=== PATIENT | male | born 1970 | race Caucasian/White ===

== ENCOUNTER 2024-04-17 06:27 | Day surgery (SDC) | payer OTHER, SELFPAY ==
[2024-04-17 07:29] VITALS: BMI 26.4
[2024-04-17 07:30] VITALS: BMI 26.4
[2024-04-17] MEDS: TYLENOL 1000 MG PO (07:42)
[2024-04-17 07:54] VITALS: BP 138/91
[2024-04-17 10:00] VITALS: BP 138/90
== END 2024-04-17 10:21 | disposition home or self-care (01) ==
LOC: SDS 06:27
PROVIDERS: ATTENDING PHYSICIAN Surgery
DX: L72.9 Follicular cyst of the skin and subcutaneous tissue, unspecified (principal)
CPT/HCPCS: 11423

== ENCOUNTER 2024-07-05 09:02 | Emergency (ER) | payer OTHER, SELFPAY ==
[2024-07-05 09:04] VITALS: BP 159/84
--- NOTE | 2024-07-05 10:10 | ED.GENMED ---
History of Present Illness
General
Chief Complaint: Cold/Flu/URI Symptoms
Source: patient
Exam Limitations: none
Time Seen by Provider: 07/05/24 09:47
Nursing documentation reviewed up to this point in time: agreed with
History of Present Illness
History of Present Illness:
54-year-old male with history of HTN, HLD, smoker who states he smoked for the past 40 years and stopped last week.
He is here today for persistent stent chest congestion. He states symptoms started 7 weeks ago when he was diagnosed with flu B at urgent care and given a Z-Mikey and felt no better. He saw his family doctor waqar 2 weeks ago with sinus congestion,
chest congestion, cough and was put on Augmentin 500 mg twice daily for 10 days after which she had a little relief.
For the past 4 to 5 days the chest congestion is worse, he is coughing up mucus, blowing his nose a lot, feels achy and sore.
Denies f/c/n/v/d/c. 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
Past History
Past History
ED Past Medical History: HTN and Hypercholesterolemia
ED Past Surgical History: Orthopedic
Social History
Tobacco: Smoker
Alcohol: Occasional
Drug: None
Personal: Single
Living: with family
Employment: Employed
Family History
Family History: Other
Review of Systems
Review of Systems
Allergies reviewed?: Yes
All Other Systems: ROS reviewed and negative except as documented in HPI and ROS
Constitutional: Denies fever or chills
EENT: Reports runny nose (Blowing nose a lot); Denies sore throat
Respiratory: Reports cough; Denies hemoptysis or trouble breathing
Cardiac: Denies chest pain
ABD/GI: Denies abdominal pain, nausea, vomiting or diarrhea
: Denies dysuria or difficulty voiding
Musculoskeletal: Reports no symptoms
Skin: Reports no symptoms
Neurological: Reports no symptoms
Phy Exam
Physical Exam
Physical Exam:
GENERAL: No acute distress. A&Ox3.
CONSTITUTIONAL: Afebrile.
EYES: clear, conjunctivae normal
ENMT: moist mucus membranes, Pharynx nl
RESPIRATORY: Regular respirations, nonlabored, intermittent junky cough, lungs with low pitched expiratory rhonchi
CARDIOVASCULAR: Regular rate and rhythm, no murmurs, no rubs.
GI: Soft, nontender, normal BS
MUSCULOSKELETAL: Moves with ease. Well perfused.
SKIN: Warm, dry, pink
PSYCH: Normal mood and affect. Well kept, interactive and appropriate
NEUROLOGIC: Awake, alert and oriented. No focal neurological deficits
Course
Orders/Labs/Results
Orders:
Orders
07/05/24 10:09
Ipratropium/Albuterol Sulfate [Duoneb] 3 ml INH R NOW STA
CR Chest - 2 Views Urgent
Comment:
Reason For Exam: congestion x 7 weeks, no improv w 2 antibiotics
07/05/24 10:26
Complete Blood Count/With Diff Urgent
Comprehensive Metabolic Panel Urgent
Abnormal Lab Results
07/05/24
10:26
Absolute Monos (auto) 0.7 H 10^3/uL
(0.1-0.6)
ALT 78 H U/L
(0-50)
07/05/24 10:26
07/05/24 10:26
Vital Signs
Initial and Last Documented VS:
Initial Vital Signs
Temp Pulse Resp BP Pulse Ox
97.8 F 87 16 159/84 99
07/05/24 09:04 07/05/24 09:04 07/05/24 09:04 07/05/24 09:04 07/05/24 09:04
Last Documented Vital Signs
Temp Pulse Resp BP Pulse Ox
97.8 F 73 16 126/87 99
07/05/24 09:04 07/05/24 11:52 07/05/24 09:04 07/05/24 11:52 07/05/24 09:04
MDM/Problems Addressed
Differential Diagnosis Includes:
seasonal allergies, viral URI, COPD
MDM/Problems Addressed:
54-year-old male with history of HTN, HLD, smoker who states he smoked for the past 40 years and stopped last week.
He is here today for persistent stent chest congestion. He states symptoms started 7 weeks ago when he was diagnosed with flu B at urgent care and given a Z-Mikey and felt no better. He saw his family doctor waqar 2 weeks ago with sinus congestion,
chest congestion, cough and was put on Augmentin 500 mg twice daily for 10 days after which she had a little relief.
For the past 4 to 5 days the chest congestion is worse, he is coughing up mucus, blowing his nose a lot, feels achy and sore.
Denies f/c/n/v/d/c. 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
Afebrile, NAD
11:40 AM:
CBC, CMP unremarkable
Chest x-ray: Radiology report read: NAD
Pt feels much better after Duoneb states lungs feel much clearer, rhonchi much improved on auscultation
This is most likely a mixture of seasonal allergies, possibly a viral URI and possibly COPD
Plan: Prescription sent to his pharmacy for albuterol inhaler, a steroid taper and Flonase for his sinus congestion
*Critical Care Note
Total Time (30-74mins, 75-104mins- exclusive of procedures): Not Applicable
ED Attending Note
-
Portions of this chart may have been created with voice recognition software.� Occasional wrong word or��sound alike� substitutions may have occurred due to the inherent limitations of voice recognition software.
Discharge Plan
Departure
Patient Disposition: Home (Routine Discharge)
Date of Disposition: 07/05/24
Time of Disposition: 11:39
Patient with high blood pressure during this ER visit?: No
Condition: Good
Discharge Problem:
Viral URI with cough, Seasonal allergies
Instructions: Viral Upper Respiratory Infection, Adult (DC), Seasonal Allergies ED
Prescriptions:
New
albuterol sulfate 90 mcg/actuation HFA aerosol inhaler
2 puff inhalation Q6H PRN (Reason: shortness of breath or wheezing) Qty: 6.7 0RF
prednisone 20 mg tablet
40 mg PO DAILY Qty: 10 0RF
fluticasone propionate [Flonase Allergy Relief] 50 mcg/actuation spray,suspension
1 spray intranasal DAILY Qty: 16 0RF
No Action
atorvastatin 40 mg Tablet
40 mg PO DAILY
lisinopril-hydrochlorothiazide 20-12.5 mg Tablet
1 tab PO DAILY
acetaminophen 500 mg Tablet
1,000 mg PO Q6H PRN (Reason: pain)
Centrum Silver Men [id number] mcg Tablet
1 tab PO DAILY
ibuprofen 200 mg tablet
400 - 600 mg PO Q6HPRN PRN (Reason: moderate pain) Qty: 1 0RF
Referrals:
Shar Monge, [Family Provider] - Follow up in 1 week
Activity Restrictions/Additional Instructions:
As we discussed, you may have a combination of a viral upper respiratory infection, seasonal allergies and may be a touch of COPD.
Your chest x-ray is clear, your blood work is normal
I sent a prescription to your pharmacy for an albuterol inhaler, a steroid taper and Flonase nasal spray
Try Claritin or Zyrtec for allergies.
See your doctor next week if not much improved by then
Interventions
Interventions:
*Risk Screen - Suicide Last Done: 07/05/24 09:04
*General Assessment Last Done: 07/05/24 09:04
*Neglect/Abuse Screening Last Done: 07/05/24 09:04
*ED- Fall Risk Assessment Last Done: 07/05/24 10:33
*ED COVID-19 Vaccine History Last Done: 07/05/24 09:04
*Nursing Disposition Last Done: 07/05/24 11:52
ED- Pulmonary Assessment Last Done: 07/05/24 10:33
Discharge Date and Time
Discharge Date/Time: 07/05/24 12:17
Print Language: POLISH
[2024-07-05] MEDS: DUONEB 3 ML INH (10:27)
[2024-07-05 10:33] VITALS: BMI 27.1
[2024-07-05 10:51] LABS: % Basophils 0.9 % (0-2); % Eosinophils 2.8 % (0-6); % Immature Granulocytes 0.4 % (0-0.5); % Lymphocytes 34.1 % (20.5-51.1); % Monocytes 8.7 % (1.7-9.3); % Neutrophils 53.1 % (42.2-75.2); Absolute Basophils 0.1 10^3/uL (0-0.2); Absolute Eosinophils 0.2 10^3/uL (0-0.7); Absolute Lymphocytes 2.6 10^3/uL (1.2-3.4); Absolute Monocytes 0.7 10^3/uL (0.1-0.6); Hematocrit 41.8 % (39.0-52.0); Hemoglobin 14.4 g/dL (13.0-18.0); Mean Corp Hgb Conc. 34.4 g/dL (33.0-37.0); Mean Corpuscular Hgb 29.6 pg (27.0-31.0); Mean Corpuscular Volume 85.8 fL (80.0-94.0); Mean Platelet Volume 9.9 fL (7.4-10.4); Nucleated Red Blood Cells % 0 % (-); Platelet Count 226 10^3/uL (130-400); Red Blood Cell Count 4.87 10^6/uL (4.70-6.10); Red Cell Dist. Width 12.8 % (11.5-14.5); White Blood Cell Count 7.6 10^3/uL (4.8-10.8)
[2024-07-05 10:52] LABS: ALT (SGPT) 78 U/L (0-50); AST (SGOT) 37 U/L (17-59); Albumin 4.7 g/dl (3.5-5.0); Alkaline Phosphatase 70 U/L (38-126); Blood Urea Nitrogen 20 mg/dl (9-20); Carbon Dioxide 28 mmol/L (22-30); Chloride 101 mmol/L (98-107); Estimated Creatinine Clearance 104 ml/min; Glucose 93 mg/dl (70-99); Potassium 4.1 mmol/L (3.5-5.1); Sodium 137 mmol/L (135-145); Total Bilirubin 1.1 mg/dl (0.2-1.3); Total Protein 6.8 g/dl (6.3-8.2); eGFR > 60.00
[2024-07-05 11:52] VITALS: BP 126/87
== END 2024-07-05 12:17 | disposition home or self-care (01) ==
LOC: EMR 09:02
PROVIDERS: Registered Nurse; EMERGENCY PHYSICIAN Emergency Medicine; FAMILY PHYSICIAN Family Medicine
DX: J06.9 Acute upper respiratory infection, unspecified (principal); B97.89 Other viral agents as the cause of diseases classified elsewhere; J30.2 Other seasonal allergic rhinitis; E78.00 Pure hypercholesterolemia, unspecified; I10 Essential (primary) hypertension; F17.200 Nicotine dependence, unspecified, uncomplicated
CPT/HCPCS: 94640; 99284; 71046; 80053; 85025